=== PATIENT | female | born 1940 | race Caucasian/White ===

== ENCOUNTER 2022-08-21 11:36 | Emergency (ER) | payer MEDICARE, SELFPAY ==
[2022-08-21 11:48] VITALS: BP 127/66; PULSE 67; RESP 18; TEMP 36.4; O2SAT 98; BMI 26.8
--- NOTE | 2022-08-21 12:17 | ED_ITS ---
HPI - General Adult General Chief complaint: Abdominal Pain Stated complaint: nausea, headaches Time Seen by Provider: 08/21/22 11:44 History of Present Illness HPI narrative: Nausea for months. Just finished treatment for UTI. Has been feeling sick for months. Feels weak. Has been in and out of the hospital in [place], never felt that it helped. Was suggested to come to [facility]. Tried to get into [facility], but they are booked out for months. Due for hip surgery on 09/15/22. Saw her p saray yesterday, brought up these concerns. Pt states that didn't get treated completely. Frustrated because she's not getting better. Had urine tested two days ago and was told it was clear. Feeling urgency today 81-year-old woman presenting to the emergency department with complaint upper abdominal pain of long-time duration qualities that are difficult to describe. During this visit though she describes a moment of indigestion but does not feel that she typically struggles with that and ?I am very careful?. She does take famotidine. Sounds like she is pending an upper GI; actual schedule date is not determined. Has had numerous visits and she and her are describing a dissatisfaction generally with the degree of workup that is being done. Not addressing numerous things. She continues to struggle with urinary frequency and dysuria. The dysuria may correlate with the upper abdominal pain as well. She does have some degree of incontinence. She is wearing attends. She says that has never been physically evaluated for potential cause of incontinence. She also has some low back pain. It sounds as though is being recommended for right hip replacement as the cause of that low back pain. She thinks that has been inferred that the hip is infected and therefore the cause of her pain. Pending right hip replacement on September 15 of this year. Over the last few weeks has been now having an intermittent scratchy feeling in the left mid chest. Not associated with exertion. Maybe associated with her breast she wonders. Major frustrating symptom is many months of nausea. This may be associated with urinary tract infections but seems a little unclear. Related Data Home Medications Medication Instructions Recorded Confirmed furosemide 20 mg tablet 20 mg PO DAILY 08/21/22 08/21/22 icosapent ethyl 1 gram capsule 2 g PO BID 08/21/22 08/21/22 levothyroxine 75 mcg capsule 75 mcg PO DAILY 08/21/22 08/21/22 losartan 50 mg tablet 25 mg PO DAILY 08/21/22 08/21/22 metoprolol succinate 25 mg 25 mg PO DAILY 08/21/22 08/21/22 tablet,extended release 24 hr mirabegron 50 mg tablet,extended 50 mg PO DAILY 08/21/22 08/21/22 release 24 hr omeprazole 20 mg capsule,delayed 20 mg PO DAILY 08/21/22 08/21/22 release rosuvastatin 10 mg tablet 10 mg PO DAILY 08/21/22 08/21/22 Previous Rx's Medication Instructions Recorded omeprazole 40 mg capsule,delayed 40 mg PO DAILY #30 caps 08/21/22 release Review of Systems Status of ROS: Reports: 6 or more systems reviewed and unremarkable except as noted in History and below [facility] Social History Smoking Status: Never smoker How often do you have a drink containing alcohol: never AUDIT-C Alcohol total score: 0 Non-prescribed substance use: denies use Exam Narrative: Exam Narrative: Very pleasant. NAD. Does smell a little of urine in the room. Carefully casually groomed. Extremities are well perfused and lower extremities are without edema. Breathing easily. Lungs are clear. This is not exacerbate sym ptoms. Heart with regular rate and rhythm. Distant but without apparent murmur rub or gallop. Abdomen is overweight soft mildly uncomfortable perhaps to palpation in the epigastrium. No masses appreciated. No rashes. Evaluation of the low back with reproducible pain in the right SI joint more so than the left. Rotational movement of the hip does not appear to cause more discomfort. She denies pain in the groin area on manipulation or palpation. Wearing attends. Const: Vital Signs, click to edit/add: Vital Signs - 24 hr 08/21/22 11:48 Temperature 97.6 F Pulse Rate [Pulse Oximeter] 67 Respiratory Rate 18 Blood Pressure [Ri ght Upper Arm] 127/66 Pulse Oximetry 98 Oxygen Delivery Me thod Room Air Documenting provider has reviewed patient's vital signs: yes Course Vital Signs Vital signs: Initial Vital Signs Temperature 97.6 F 08/21/22 11:48 Temperature Source Temporal Artery Scan 08/21/22 11:48 Pulse Rate 67 08/21/22 11:48 Respiratory Rate 18 08/21/22 11:48 Blood Pressure 127/66 08/21/22 11:48 Blood Pressure Mean 86 08/21/22 11:48 Blood Pressure Position Sitting 08/21/22 11:48 Pulse Oximetry 98 08/21/22 11:48 Oxygen Delivery Method Room Air 08/21/22 11:48 Vital Signs Temperature 97.6 F 08/21/22 11:48 Pulse Rate 67 08/21/22 11:48 Respiratory Rate 18 08/21/22 11:48 Blood Pressure 127/66 08/21/22 11:48 Pulse Oximetry 98 08/21/22 11:48 Oxygen Delivery Method Room Air 08/21/22 11:48 Temperature 97.6 F 08/21/22 15:45 Pulse Rate 64 08/21/22 15:45 Respiratory Rate 18 08/21/22 15:45 Blood Pressure 121/77 08/21/22 15:45 Pulse Oximetry 98 08/21/22 15:45 Oxygen Delivery Method Room Air 08/21/22 15:45 Medical Decision Making MDM Narrative Medical decision making narrative: It appears there are number of issues going on. They themselves did say that a physician has told her that she is infected everywhere. It seems that is struggling with urinary incontinence without of physical evaluation me to source. Think it is reasonable to at least check for urinary tract infection here. This could be certainly contributing to nausea as could smoldering gastr itis. GERD. Seems to have some degree of sacroiliac joint discomfort. It is not clear to me the reason for the right hip replacement at this point. Does not appear to have evidence of a septic joint here today. I do talk to family on the phone during her visit here today. They appear to have confidence in [facility]. I think of most benefit would be more clarification in diagnoses and plan going forward. Did place a lidocaine patch near the right SI joint during time in the emergency department. Of unclear affect ultimately prior to departure. See patient discharge plan for more thoughts Lab Data Lab results reviewed: Yes I reviewed the patient's lab results Labs: Lab Results 08/21/22 Range/Units 12:39 Urine Color Yellow (Yellow) Urine Appearance Clear (Clear) Urine pH 7.0 (5.0-8.5) Ur Specific [place] 1.010 (1.000-1.030) Urine Protein Negative (Negative) Urine Glucose (UA) Negative (Negative) Urine Ketones Negative (Negative) Urine Blood Trace-lysed A (Negative) Urine Nitrite Negative (Negative) Urine Bilirubin Negative (Negative) Urine Urobilinogen 0.2 (0.2-1.0) Ur Leukocyte Esterase Negative (Negative) Urine RBC 0-2 (0-2) Urine WBC 0-2 (0-5) Ur Squamous Epith Cells Few (None-Few) Urine Bacteria Few A (None) Discharge Plan Discharge Clinical Impression: Chronic upper abdominal pain, Urinary incontinence, Chronic nausea, Chronic sacroiliac joint pain Patient Disposition: Home w/ Parent or Adult Additional Instructions: I think it is very appropriate that you get that upper endoscopy given your complaints of upper abdominal pain and nausea. Somebody should have a look as this has been going on long enough. I understand that you have already received CT imaging of your abdomen at some point. This EGD is also relevant given the change in stools that you have seen. Bright red bleeding though tends to be lower colon or hemorrhoidal -type bleeding. Darker stools if they test positive for blood are often from the stomach. I would also consider stopping your famotidine and taking omeprazole for 2 weeks. I have prescribed this. Reassess after these 2 weeks. If there is enough irritation in your stomach it could contribute to those stool changes. The omeprazole is a potent acid shirt folder to allow for healing in your stomach. You can take your Zofran and/or liquid antacid/anti-gas medication otherwise for flares of discomfort. I remain little puzzled about your pending hip surgery. I want to believe that this is necessary for arthritis. I do not have enough information to recommend this procedure either way. It does appear today that you have sacral iliac joint pain in particular. The right seems to be more irritated than the left. This can occur with compensation that you might be doing the due to pain elsewhere, perhaps even in your hip. Since that joint is closer to the surface, this sacral iliac joint might benefit from lidocaine patches which actually could be purchased [id number]. Otherwise icing a joint like you would any other sort joint and then stabilizing the musculature around it. Please see handout on sacroiliac joint pain. Can take up to 1000 mg of acetaminophen per dose. Might also try naproxen up to 500 mg 2 times daily here and there and taken with a little bit of food; not chronic daily dosing. Urinary tract infections could be contributing to some of the abdominal discomfort that you feel. Frankly, I am little more interested in the incontinence that you have been having; which today at least does not appear to be related to a urinary tract infection. I am not sure why you're having abdominal pain with urination at this time. You seem to indicate that no one has really done a physical evaluation to assess for a physical/structural cause for this incontinence. I think this needs to be done by your primary care provider or by an OBGYN or by a urologist. Following this evaluation, further recommendations can be made. I would call to schedule with your primary care provider to try to go over all these issues and go with a family member who can help to provide clarity for you. I am concerned that you are getting frustrated in part because you're not understanding from the medical perspective what is going on or being diagnosed. Prescriptions: New omeprazole 40 mg capsule,delayed release(DR/EC) 40 mg PO DAILY Qty: 30 0RF No Action mirabegron 50 mg tablet extended release 24 hr 50 mg PO DAILY omeprazole 20 mg capsule,delayed release(DR/EC) 20 mg PO DAILY furosemide 20 mg tablet 20 mg PO DAILY levothyroxine 75 mcg capsule 75 mcg PO DAILY metoprolol succinate 25 mg tablet extended release 24 hr 25 mg PO DAILY rosuvastatin 10 mg tablet 10 mg PO DAILY losartan 50 mg tablet 25 mg PO DAILY icosapent ethyl 1 gram capsule 2 g PO BID Follow Up/Referrals: Tonia Bhatti MD [Primary Care Provider] - Stand Alone Forms: [facility] Info Instructions
[2022-08-21] MEDS: GI COCKTAIL (VISC LIDO/ANTACID) 30 ML PO (12:50)
--- OUTSIDE RECORDS SUMMARY | 2022-08-21 12:55 | XMS_ITS | Continuity of Care Document ---
Author Name Unknown Organization +[facility] Address [address] [place] [address] Phone Care Team Providers Care Director Of Acquisition Marketing Name Role Phone Perez Chopra MD Unavailable Unavailable Allergies, Adverse Reactions, Alerts Substance Reaction Status Criticality CEPHALEXIN MONOHYDRATE unknown Active No In formation [id number] Reductase Inhibitors unknown Acti ve No Information Medications Medication Instructions Dosage Effective Dates (start - stop) Status Comments SYNTHROID (unknown strength) Not Available - Active ATENOLOL (unknown strength) Not Available - Active DIOVAN (unknown strength) Not Available - Active Procedures Procedure Date OFFICE/OUTPATIENT VISIT, NEW Advance Directives Directive Yes / No Effective Date File Name No Information Encounters Encounter Description Practice Location Reason(s) For Visit Diagnoses Date Provider Providers Copied on Encounter +[facility] , [address] [facility], [place], [address], tel:[phone] [facility] No Information [address] Keysha Todd. [address], [place], [place], [id number], [place]. tel:[phone] OFFICE/OUTPAT IENT VISIT, NEW +[facility] , [address], [place], [address], [place] tel:[phone] [facility] abdominal discomfort (chief complaint) Abdominal pain, right upper quadrant [address] Margarita Stiles. [address], [place], [place], [id number], [place]. tel:[phone] Referring Provider: [place], [address] , [place], [address]. tel:[phone] Family History Family Member Type Diagnosis Age At Onset No Information Payers Payer name Insurance type Covered alliance party ID Authoriza tizeus(s) MEDICARE MB [id number] [facility] [id number] Social History Type Description Quantity Date Captured Comments Sex Female Smoking Status No Information Chief Complaint And Reason For Visit No Information Reason For Referral Reason For Referral No Information Plan Of Treatment Date Type Action Status No Information History Of Present Illness Encounter Date Complaint History Of Prese nt Illness No Information Functional Status Date Functional Assessmen t No Information Instructions Date Instruction Additional Infor mation No Information Assessments Type Assessment Date No Information Patient Care Teams Name Effective Dates (start - stop) Status Members No Information
[2022-08-21 13:03] LABS: Appearance Urine Clear (Clear); Bilirubin Urine Negative (Negative); Blood Urine Trace-lysed (Negative); Color Urine Yellow (Yellow); Glucose Urine Negative (Negative); Ketones Urine Negative (Negative); Leukocyte Esterase Urine Negative (Negative); Nitrite Urine Negative (Negative); Protein Urine Negative (Negative); Urobilinogen Urine 0.2 (0.2-1.0)
[2022-08-21 13:22] LABS: RBC Urine 0-2 (0-2)
[2022-08-21 13:23] LABS: Bacteria Urine Few; Squamous Epithelial Cell Urine Few (None-Few); WBC Urine 0-2 (0-5)
[2022-08-21] MEDS: LIDOCAINE 5% PATCH 1 PATCH TRANSDERMA (14:29)
[2022-08-21 15:45] VITALS: BP 121/77; PULSE 64; RESP 18; TEMP 36.4; O2SAT 98
== END 2022-08-21 15:45 | disposition home or self-care (01) ==
PROVIDERS: Emergency Provider Family Medicine; PCP Internal Medicine
DX: R10.10 Upper abdominal pain, unspecified (principal); R32 Unspecified urinary incontinence; M53.3 Sacrococcygeal disorders, not elsewhere classified
CPT/HCPCS: 81001; 87086; 99283; 99284; A9270